=== PATIENT | male | born 1975 | race Caucasian/White ===

== ENCOUNTER 2019-03-09 21:04 | Emergency (ER) | payer OTHER ==
[~2019-03-09] VITALS: Ht 180.3 cm; Wt 83.9 kg
[2019-03-09] MEDS ORDERED: XANAX1 MG PO (21:28)
[2019-03-09 21:40] LABS: ABSOLUTE NEUTROPHILS 6.4 thou/uL (1.4-8.2); BASOPHILS 0.4 % (0.0-2.0); EOSINOPHILS 3.3 % (0.0-3.0); HEMATOCRIT 39.2 % (42.0-52.0); HEMOGLOBIN 13.4 gm/dL (14.0-18.0); LYMPHOCYTES 26.5 % (24.0-44.0); MCH 32.1 pg (26.0-34.0); MCHC 34.1 g/dL (28.0-37.0); MCV 94.2 fL (80.0-100.0); MONOCYTES 4.5 % (1.0-8.0); PLATELET COUNT 329 thou/uL (150-400); POLYS 65.3 % (36.0-66.0); RBC 4.16 mil/uL (4.50-6.00); RDW 14.5 % (10.5-14.5); WBC 9.9 thou/uL (4.0-11.0)
[2019-03-09 21:41] LABS: URINE BILIRUBIN 1+ (Negative); URINE BLOOD NEGATIVE (Negative); URINE CLARITY CLEAR; URINE COLOR YELLOW; URINE GLUCOSE-RANDOM* NEGATIVE (Negative); URINE KETONES NEGATIVE (Negative); URINE LEUKOCYTES-REFLEX NEGATIVE (Negative); URINE NITRITE-REFLEX NEGATIVE (Negative); URINE PROTEIN (DIPSTICK) TRACE (Negative); URINE SPECIFIC GRAVITY >= 1.030 (1.005-1.035)
[2019-03-09 21:43] LABS: ANION GAP 8 mmol/L (7-16); BUN 13 mg/dL (7-18); CALCIUM 8.7 mg/dL (8.5-10.1); CHLORIDE 105 mmol/L (98-107); CO2 27 mmol/L (21-32); GLUCOSE 111 mg/dL (74-106); POTASSIUM 3.1 mmol/L (3.5-5.1); SODIUM 140 mmol/L (136-145)
[2019-03-09 21:47] LABS: ICTOTEST (BILI CONFIRMATORY) Positive (Negative)
[2019-03-09 21:51] LABS: TROPONIN-I <0.06 ng/mL (<0.06)
[2019-03-09 21:51] LABS: AMP/METHAMP POSITIVE (Negative); BARBITURATES Negative (Negative); BENZODIAZEPINES Negative (Negative); COCAINE Negative (Negative); METHADONE Negative (Negative); OPIATES Negative (Negative); PCP Negative (Negative)
[2019-03-09 23:29] VITALS: BP 127/69
--- NOTE | 2019-03-10 11:32 | EKG ---
[address] [address] ELECTROCARDIOGRAM REPORT Name: DAPHNE JARRETT Room [id number] Admission: 03/09/19 Attend Phys: Discharge: 03/09/19 Date of : 79 Report #: [id number] THIS REPORT FOR: //name// [facility] ED Test Date: 2019-03-09 Test Time: 21:06:09 Pat Name: DAPHNE JARRETT Department: Room: Gender: M Mail Reader: safia : 1975 Requested By: Matilde Shoemaker Order Number: [id number] MD: Nicolas Montes De Oca Measurements Intervals [place] Rate: 90 P: 33 OK: 161 QRS: -10 QRSD: 102 T: 62 QT: 366 QTc: 448 Interpretive Statements Sinus rhythm Baseline wander in lead(s) V2 No previous ECG available for comparison Electronically Signed On 03-10-2019 11:32:18 CDT by Nicolas Montes De Oca [email or web address] <ELECTRONICALLY SIGNED> By: Nicolas Montes De Oca MD 03/10/19 1132 2106 05 Nicolas Montes De Oca MD /ANGELICA
== END 2019-03-09 23:25 | disposition home or self-care (01) ==
LOC: ER 21:04
PROVIDERS: Emergency Medicine
DX: R07.89 Other chest pain (principal); R06.00 Dyspnea, unspecified; F17.210 Nicotine dependence, cigarettes, uncomplicated; Z88.7 Allergy status to serum and vaccine